=== PATIENT | male | born 1985 | race Caucasian/White ===

== ENCOUNTER 2018-02-27 03:32 | Emergency (ER) | payer OTHER ==
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
== END 2018-02-27 04:35 | disposition home or self-care (01) ==
LOC: MW.ED 03:32
DX: M25.562 Pain in left knee (principal); M25.552 Pain in left hip; Z88.0 Allergy status to penicillin
CPT/HCPCS: 71045; 71045-26; 72170; 72170-26; 73562-26-LT; 73562-LT; 99283